=== PATIENT | female | born 1970 | race African-American/Black ===

== ENCOUNTER 2024-03-12 12:18 | Outpatient (CLI) | payer BC | END 2024-03-12 12:19 | disposition home or self-care (01) | LOC: CSHULT 12:18 | PROVIDERS: ATTEND Otolaryngology Plastic Surgery within the Head & Neck | DX: E04.1 Nontoxic single thyroid nodule (principal); E04.2 Nontoxic multinodular goiter | CPT/HCPCS: 76536 ==